=== PATIENT | female | born 2000 | race Hispanic/Latino ===

== ENCOUNTER 2018-11-24 16:04 | Emergency (ER) | payer BC, OTHER ==
--- OUTSIDE RECORDS SUMMARY | 2018-11-24 16:06 | XMS REPORT ---
:2000 [facility] [address] [place] [address] Dr. Palma [address] [place] [id number] Care Team Providers Name Role Phone Unavailable Unavailable Unavailable Problems This patient has no known problems. Allergies, Adverse Reactions, Alerts This patient has no known allergies or adverse reactions. Medications This patient has no known medications.
[2018-11-24 18:43] LABS: Urine Amorphous Sediment 3+ /HPF (NONE SEEN); Urine Bacteria 20-50 /HPF (<20); Urine Culture Reflex Order REFLEXED; Urine Mucus 1+ /HPF (NONE SEEN); Urine RBC <5 /HPF (NONE SEEN)
[2018-11-24 18:44] LABS: Urine Blood NEGATIVE (NEG); Urine Glucose NEGATIVE (NEG); Urine Protein TRACE (NEG); Urine Specific Gravity >1.030 (1.005-1.030); Urine pH 5.5 (5.0-7.0)
[2018-11-24 19:21] LABS: Absolute Lymphocytes (CBC) 3.2 K/uL (0.7-4.9); Absolute Monocytes 0.4 K/uL (0.1-1.3); Absolute Neutrophil 4.9 K/uL (1.8-8.0); Basophils % 0.8 % (0-1.3); Eosinophils % 1.3 % (0-4.4); Hematocrit 39.2 % (36.0-45.0); Lymphocytes % 37.2 % (15.3-44.8); MPV 9.8 fL (7.6-11.3); Monocytes % 4.6 % (3.3-12.3); RBC Red Blood Cell Count 4.59 M/uL (3.86-4.86)
[2018-11-24] MEDS ORDERED: ACETAMINOPHEN 500 MG TAB ONE (19:27)
[2018-11-24] MEDS ORDERED: NA CHLORIDE 0.9% 1,000 ML ONE (19:27)
[2018-11-24 19:33] LABS: BUN Blood Urea Nitrogen 9 mg/dL (7-18); Bicarbonate 23 mmol/L (21-32); Glucose Level 89 mg/dL (74-106); Potassium 3.7 mmol/L (3.5-5.1); Sodium Level 138 mmol/L (136-145)
[2018-11-24] MEDS ORDERED: CEFTRIAXONE/SWI 1gm 1 GM/10 ML SYR ONE (19:35)
[2018-11-24 19:53] LABS: ALT/SGPT 33 U/L (12-78); AST/SGOT 21 U/L (15-37); Albumin 3.7 g/dL (3.4-5.0); Alkaline Phosphatase 89 U/L (45-117); Bilirubin Direct < 0.1 mg/dL (0-0.2); Bilirubin Total 0.3 mg/dL (0.2-1.0); HCG, Quantitative 91051 mIU/mL (1-3); Protein, Total 7.8 g/dL (6.4-8.2)
--- NOTE | 2018-11-24 20:43 | ER ---
Nurse's Notes [facility] Name: Lakeisha Henry Age: 18 yrs Sex: Female : 2000 Arrival Date: 11/24/2018 Time: 16:10 Bed 18 Private MD: Diagnosis: Acute Pelvic Pain;Acute UTI;first trimester ;nausea;dehydration Presentation: 11/24 16:19 Presenting complaint: Lower abdominal pain x 2 days. Pt reports she is 9 weeks hb , SAMINA 06/27/19, . Transition of care: patient was not received from another setting of care. Onset of symptoms was November 23, 2018. Risk Assessment: Do you want to hurt yourself or someone else? Patient reports no desire to harm self or others. Initial Sepsis Screen: Does the patient meet any 2 criteria? No. Patient's initial sepsis screen is negative. Does the patient have a suspected source of infection? No. Patient's initial sepsis screen is negative. Care prior to arrival: None. 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 - Social history:: Smoking status: Patient/guardian denies using tobacco. - Ebola Screening: : No symptoms or risks identified at this time. - Family history:: not pertinent. - Hospitalizations: : No recent hospitalization is reported. Screenin:09 Abuse screen: Denies threats or abuse. Denies injuries from another. Nutritional tl1 screening: No deficits noted. Tuberculosis screening: No symptoms or risk factors identified. Fall Risk Assessment: 19:25 General: Appears in no apparent distress. Behavior is calm, cooperative, appropriate tl1 for age. Pain: Complains of pain in suprapubic area and left lower quadrant Pain currently is 6 out of 10 on a pain scale. Quality of pain is described as aching, crampy. Neuro: Level of Consciousness is awake, alert, obeys commands, Oriented to person, place, time, situation. Cardiovascular: Reports None. Respiratory: Reports cough that is non-productive, Airway is patent Trachea midline Respiratory effort is even, unlabored, Respiratory pattern is regular, symmetrical, Breath sounds are clear bilaterally. GI: Bowel sounds present X 4 quads. Abd is soft X 4 quads Abdomen is tender to palpation in suprapubic area and left lower quadrant Reports lower abdominal pain. : No signs and/or symptoms were reported regarding the genitourinary system. EENT: No signs and/or symptoms were reported regarding the EENT system. Derm: No signs and/or symptoms reported regarding the dermatologic system. Musculoskeletal: No signs and/or symptoms reported regarding the musculoskeletal system. 21:08 Reassessment: Patient and/or family updated on plan of care and expected duration. Pain tl1 level reassessed. Patient is alert, oriented x 3, equal unlabored respirations, skin warm/dry/pink. Patient states feeling better. Patient states symptoms have improved. Vital Signs: 16:21 BP 120 / 81; Pulse 96; Resp 16; Temp 97.8(TE); Pulse Ox 100% on R/A; Weight 90.72 kg; hb Height 5 ft. 3 in. (160.02 cm); Pain 10/10; 19:24 BP 109 / 71; Pulse 92; Resp 17; Pulse Ox 100% ; Pain 6/10; tl1 19:35 BP 120 / 83; Pulse 97; Resp 16; Pulse Ox 100% on R/A; mt 20:21 BP 116 / 84; Pulse 84; Resp 17; Pulse Ox 100% ; tl1 16:21 Body Mass Index 35.43 (90.72 kg, 160.02 cm) hb ED Course: 16:10 Patient arrived in ED. mr 16:21 Triage completed. hb 16:21 Arm band placed on. hb 18:45 Patient has correct armband on for positive identification. Placed in gown. Bed in low tl1 position. Call light in reach. Side rails up X 1. Adult w/ patient. Warm blanket given. Assisted to bathroom. 18:57 Ayaan Mills LVN is Primary Nurse. em 19:03 Klever Jordan MD is Attending Physician. wa 19:18 No provider procedures requiring assistance completed. Inserted saline lock: 20 gauge tl1 in right antecubital area, using aseptic technique. Blood collected. 20:09 Ultrasound completed. Patient tolerated well. sg3 20:13 Matter Eval Tm 1 In Process Unspecified. EDMS 21:08 IV discontinued, intact, bleeding controlled, No redness/swelling at site. Pressure tl1 dressing applied. Administered Medications: 19:18 Drug: Tylenol 1000 mg Route: PO; tl1 20:45 Follow up: Response: No adverse reaction; Marked relief of symptoms; Pain is decreased tl1 19:18 Drug: NS 0.9% 1000 ml Route: IV; Rate: 1000 ml; Site: right antecubital; tl1 20:45 Follow up: IV Status: Completed infusion; IV Intake: 1000ml tl1 19:21 CANCELLED (Duplicate Order): Rocephin - (cefTRIAXone) 1 grams IVPB once over 30 mins; tl1 (mix in 50 mL NS) 19:30 Drug: Rocephin 1 grams Route: IV; Rate: per protocol; Site: right antecubital; tl1 19:35 Follow up: IV Status: Completed infusion; IV Intake: 10ml tl1 Intake: 19:35 IV: 10ml; Total: 10ml. tl1 20:45 IV: 1000ml; Total: 1010ml. tl1 Outcome: 20:42 Discharge ordered by . wa 21:08 Discharged to home ambulatory, with family. tl1 21:08 Condition: good 21:08 Discharge instructions given to patient, family, Instructed on discharge instructions, follow up and referral plans. medication usage, Demonstrated understanding of instructions, follow-up care, medications, Prescriptions given X 2. 21:10 Patient left the ED. tl1 Signatures: Dispatcher [employer] EDCT Keon Ramonita Mills, Ayaan, WASH TUB MACHINE OPERATOR WASH TUB MACHINE OPERATOR Stephanie Johnson, RN RN tl1 Luann Arreola, VINCENT Carpio, Klever Lopez mt, MD MD wa Godinez, Sarah sg3
--- NOTE | 2018-11-24 20:43 | EDPHYS ---
Physician Documentation [facility] Name: Lakeisha Henry Age: 18 yrs Sex: Female : 2000 Arrival Date: 11/24/2018 Time: 16:10 Bed 18 Private MD: ED Physician Klever Jordan HPI: 11/24 19:48 This 18 yrs old Female presents to ER via Ambulatory with complaints of 9 wks wa , Abdominal Pain. 19:48 The patient presents with pelvic pain, that is located in/on the suprapubic area and L wa side pelvis, the pain does not radiate, the pain is described as moderate, constant, dull, urinary symptoms, denies urinary symptoms. 20:04 Onset: The symptoms/episode began/occurred 2 day(s) ago. Modifying factors: The wa symptoms are alleviated by nothing, the symptoms are aggravated by nothing. Associated signs and symptoms: Pertinent positives: nausea, Pertinent negatives: diarrhea, dysuria, fever, hematuria, vaginal bleeding, vaginal discharge, vomiting. Severity of symptoms: At their worst the symptoms were moderate, in the emergency department the symptoms a " 7" out of "10". The patient has not experienced similar symptoms in the past. The patient has not recently seen a physician. confirmed preg by urine test at clinic. LMP week of September. c/o suprapubic and L side pelvic pain day 2. denies vag bleed or urinary symptoms. 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 - Social history:: Smoking status: Patient/guardian denies using tobacco. - Ebola Screening: : No symptoms or risks identified at this time. - Family history:: not pertinent. - Hospitalizations: : No recent hospitalization is reported. ROS: 20:36 Positive for pelvic pain, Negative for urinary symptoms, flank pain, burning with wa urination, difficulty urinating, vaginal bleeding, vaginal discharge. 20:36 Constitutional: Negative for fever, chills, and weight loss, Eyes: Negative for injury, pain, redness, and discharge, ENT: Negative for injury, pain, and discharge, Neck: Negative for injury, pain, and swelling, Cardiovascular: Negative for chest pain, palpitations, and edema, Respiratory: Negative for shortness of breath, cough, wheezing, and pleuritic chest pain, Back: Negative for injury and pain, MS/Extremity: Negative for injury and deformity, Skin: Negative for injury, rash, and discoloration, Neuro: Negative for headache, weakness, numbness, tingling, and seizure, Psych: Negative for depression, anxiety, suicide ideation, homicidal ideation, and hallucinations. 20:36 Abdomen/GI: Positive for of the suprapubic area and left lower quadrant, Negative for nausea, vomiting, diarrhea. 20:36 All other systems are negative. Exam: 20:37 Constitutional: This is a well developed, well nourished patient who is awake, alert, wa and in no acute distress. Head/Face: Normocephalic, atraumatic. Eyes: Pupils equal round and reactive to light, extra-ocular motions intact. Lids and lashes normal. Conjunctiva and sclera are non-icteric and not injected. Cornea within normal limits. Periorbital areas with no swelling, redness, or edema. ENT: Nares patent. No nasal discharge, no septal abnormalities noted. Tympanic membranes are normal and external auditory canals are clear. Oropharynx with no redness, swelling, or masses, exudates, or evidence of obstruction, uvula midline. Mucous membranes moist. Neck: Trachea midline, no thyromegaly or masses palpated, and no cervical lymphadenopathy. Supple, full range of motion without nuchal rigidity, or vertebral point tenderness. No Meningismus. Cardiovascular: Regular rate and rhythm with a normal S1 and S2. No gallops, murmurs, or rubs. Normal PMI, no JVD. No pulse deficits. Respiratory: Lungs have equal breath sounds bilaterally, clear to auscultation and percussion. No rales, rhonchi or wheezes noted. No increased work of breathing, no retractions or nasal flaring. Back: No spinal tenderness. No costovertebral tenderness. Full range of motion. Skin: Warm, dry with normal turgor. Normal color with no rashes, no lesions, and no evidence of cellulitis. MS/ Extremity: Pulses equal, no cyanosis. Neurovascular intact. Full, normal range of motion. Neuro: Awake and alert, GCS 15, oriented to person, place, time, and situation. Cranial nerves II-XII grossly intact. Motor strength 5/5 in all extremities. Sensory grossly intact. Cerebellar exam normal. Normal gait. Psych: Awake, alert, with orientation to person, place and time. Behavior, mood, and affect are within normal limits. 20:37 Abdomen/GI: Inspection: abdomen appears normal, Bowel sounds: normal, Palpation: soft, in all quadrants, mild abdominal tenderness, in the suprapubic area and L adnexal area. no masses. 20:37 Back: CVA tenderness, is absent. Vital Signs: 16:21 BP 120 / 81; Pulse 96; Resp 16; Temp 97.8(TE); Pulse Ox 100% on R/A; Weight 90.72 kg; hb Height 5 ft. 3 in. (160.02 cm); Pain 10/10; 19:24 BP 109 / 71; Pulse 92; Resp 17; Pulse Ox 100% ; Pain 6/10; tl1 19:35 BP 120 / 83; Pulse 97; Resp 16; Pulse Ox 100% on R/A; mt 20:21 BP 116 / 84; Pulse 84; Resp 17; Pulse Ox 100% ; tl1 16:21 Body Mass Index 35.43 (90.72 kg, 160.02 cm) hb MDM: 19:03 Patient medically screened. wa 20:38 Differential diagnosis: ectopic , threatened Ab, nonspecific abdominal pain, wa urinary tract infection. Data reviewed: vital signs, nurses notes, lab test result(s), radiologic studies. Test interpretation: by ED physician or midlevel provider: noted UTI. contraction ketosis. 20:39 Test interpretation: by ED physician or midlevel provider: pelvic US. 9 wk IUP. HR 159. wa no ovarian pathology. Response to treatment: the patient's symptoms have markedly improved after treatment. ED course: received tylenol for pain with great response. denies pain at d/c. received rocephin IV. will d/c with keflex. 11/24 18:04 Order name: Urine Microscopic Only; Complete Time: 19:11 ag 11/24 18:05 Order name: Urine Dipstick--Ancillary (enter results); Complete Time: 19:11 ag 11/24 18:05 Order name: Urine --Ancillary (enter results); Complete Time: 19:11 ag 11/24 18:46 Order name: Urine Culture EDMS 11/24 19:03 Order name: Abo/rh Typing; Complete Time: 20:32 tl1 11/24 19:03 Order name: Basic Metabolic Panel; Complete Time: 20:32 tl1 11/24 19:03 Order name: CBC with Diff; Complete Time: 20:32 tl1 11/24 19:09 Order name: LFT's; Complete Time: 20:32 wa 11/24 19:11 Order name: Quantitative Hcg; Complete Time: 20:32 hi 11/24 20:09 Order name: Matter Eval Tm 1 EDMS 11/24 19:03 Order name: IV Saline Lock; Complete Time: 19:13 tl1 11/24 19:03 Order name: Labs collected and sent; Complete Time: 19:13 tl1 11/24 19:03 Order name: NPO; Complete Time: 19:13 tl1 11/24 19:03 Order name: Urine Dipstick-Ancillary (obtain specimen); Complete Time: 19:15 tl1 Administered Medications: 19:18 Drug: Tylenol 1000 mg Route: PO; tl1 20:45 Follow up: Response: No adverse reaction; Marked relief of symptoms; Pain is decreased tl1 19:18 Drug: NS 0.9% 1000 ml Route: IV; Rate: 1000 ml; Site: right antecubital; tl1 20:45 Follow up: IV Status: Completed infusion; IV Intake: 1000ml tl1 19:21 CANCELLED (Duplicate Order): Rocephin - (cefTRIAXone) 1 grams IVPB once over 30 mins; tl1 (mix in 50 mL NS) 19:30 Drug: Rocephin 1 grams Route: IV; Rate: per protocol; Site: right antecubital; tl1 19:35 Follow up: IV Status: Completed infusion; IV Intake: 10ml tl1 Disposition: 11/24/18 20:42 Discharged to Home. Impression: Acute Pelvic Pain, Acute UTI, first trimester , nausea, dehydration. - Condition is Stable. - Discharge Instructions: First Trimester of , [id number], Urinary Tract Infection, Adult, [id number]. - Prescriptions for promethazine 12.5 mg Oral tablet - take 1 tablet by ORAL route every 8 hours; 15 tablet. Keflex 500 mg Oral Capsule - take 1 capsule by ORAL route every 8 hours for 10 days; 30 capsule. - Medication Reconciliation Form, Thank You Letter, Antibiotic Education, Prescription Opioid Use form. - Follow up: Private Physician; When: 2 - 3 days; Reason: Re-evaluation by your physician. - Problem is new. - Symptoms have improved. - Notes: return immediately if worsening concerns. Signatures: Dispatcher [employer] [facility] Stephanie Burns RN RN tl1 Luann Arreola RN RN [facility] Hospital[facility]le[facility] MD MD hi Corrections: (The following items were deleted from the chart) 19:21 19:12 Rocephin - (cefTRIAXone) 1 grams IVPB once over 30 mins; (mix in 50 mL NS) tl1 ordered. hi 20:09 19:13 Pelvis Complete+US.RAD.BRZ ordered. [facility] EDHI 21:10 20:42 11/24/2018 20:42 Discharged to Home. Impression: Acute Pelvic Pain; Acute UTI; tl1 first trimester ; nausea; dehydration. Condition is Stable. Forms are Medication Reconciliation Form, Thank You Letter, Antibiotic Education, Prescription Opioid Use. Follow up: Private Physician; When: 2 - 3 days; Reason: Re-evaluation by your physician. Problem is new. Symptoms have improved. wa
--- NOTE | 2018-11-24 20:52 | RAD REPORT ---
EXAM DESCRIPTION: US - Matter [place] Tm 1 - 11/24/2018 8:11 pm CLINICAL HISTORY: Pelvic pain, COMPARISON: None. FINDINGS: A single intrauterine gestation is identified within a normal shaped gestational sac. Hear t rate is 165 bpm. No hematoma, mass or other suspicious finding. [place]-rump length and gestational s ac measurement corresponds to a 9 W 1 D age. SAMINA is 06/28/2019. No suspicion for placental abnormalit y. IMPRESSION: Single 9 W 1 D intrauterine gestation. SAMINA is 06/28/2019. No suspicious findings.
== END 2018-11-24 21:10 | disposition home or self-care (01) ==
LOC: ER 16:04
DX: O23.41 Unspecified infection of urinary tract in pregnancy, first trimester (principal); E86.0 Dehydration; Z3A.01 Less than 8 weeks gestation of pregnancy
CPT/HCPCS: 36415; 76801; 80048; 80076; 81003; 81015; 81025; 84702; 85025; 86900; 86901; 87086; 87088; 96361; 96374; 99284; J0696; J7030